=== PATIENT | female | born 1970 | race Caucasian/White ===

== ENCOUNTER 2018-08-19 21:31 | Inpatient (IN) ==
[2018-08-19] MEDS ORDERED: KETAMINE 100 MG/ML (5ML VIAL) ONE (21:35)
[2018-08-19] MEDS ORDERED: Adacel (T-DAP) 0.5 ML SYRINGE ONE (21:37)
[2018-08-19] MEDS ORDERED: CEFAZOLIN 2 GM/50 ML BAG ONE ×3 (21:37→21:39)
[2018-08-19 21:50] LABS: #Basophils 0.1 thou/uL (0.0-0.2); #Lymphocytes 1.4 thou/uL (1.20-3.40); #Monocytes 0.5 thou/uL (0.11-0.59); #Neutrophils 3.6 thou/uL (1.40-6.50); %Eosinophils 0.6 % (0.0-10.0); %Lymphocytes 24.4 % (21.0-51.0); %Neutrophils 64.9 % (42.0-75.0); Hemoglobin 11.8 g/dL (12.0-16.0); Mean Corpuscular HGB CONC 33.6 g/dL (32.0-36.0); Mean Corpuscular Volume 92.4 fL (78.0-98.0); Mean Platelet Volume 7.4 fL (7.4-10.4); Platelet Count 287 thou/uL (130-400); RBC Distribution Width 12.2 % (11.5-14.5); Red Blood Cell (RBC) Count 3.79 mill/uL (4.20-5.40); White Blood Cell (WBC) Count 5.6 thou/uL (4.8-10.8)
[2018-08-19 22:03] LABS: ALT (SGPT) 10 U/L (8-55); AST (SGOT) 13 U/L (5-34); Albumin 3.7 g/dL (3.5-5.0); Alkaline Phosphatase 49 U/L (40-150); Anion Gap 18 mmol/L (10-20); BUN (Urea Nitrogen) 29 mg/dL (7.0-18.7); Bilirubin, Total 0.3 mg/dL (0.2-1.2); Calc. Creatinine Clearance 0 mL/min (70-130); Calcium 8.7 mg/dL (7.8-10.44); Carbon Dioxide 18 mmol/L (22-29); Chloride 107 mmol/L (98-107); Estimated GFR-MDRD 66; Globulin 2.3 g/dL (2.4-3.5); Glucose 158 mg/dL (70-105); Potassium 3.8 mmol/L (3.5-5.1); Sodium 139 mmol/L (136-145)
[2018-08-19] MEDS ORDERED: Lidocaine 1% w/Epinephrine 1:100K 20 ML VIAL ONE (22:03)
[2018-08-19 22:07] LABS: Clarity CLOUDY (Clear); Specific Gravity, Urine 1.022 (1.002-1.036); pH, Urine 6.5 (5.0-9.0)
[2018-08-19 22:08] LABS: Bilirubin Negative (Negative); Blood, Urine Small (Negative); Glucose, Urine (Dipstick) Negative (Negative); Leukocyte Small (Negative); Nitrite Negative (Negative); Protein, Urine (Dipstick) Trace mg/dL (Neg-Trace)
[2018-08-19 22:09] LABS: Actual Bicarbonate (HCO3a) 22.8 mEq/L (22-28); Analyzer IN Cardio ER; Base Excess (BEa) -4.5 mEq/L (-2.0 to +3.0); Calcium, Ionized 1.13 mmol/L (1.12-1.30); Carboxyhemoglobin (COHb) 1.5 gm% (0.0-3.0); Hemoglobin (Hb) 12.8 g/dL (12.0-16.0); Potassium - ABG Lab 3.87 mmol/L (3.70-5.30); pH, Arterial 7.27 (7.35-7.45)
[2018-08-19 22:09] LABS: Bacteria/HPF 1+ HPF (None Seen); RBC/HPF 0-3 HPF (0-3); Squamous Epithelial 21-50 HPF (0-3)
[2018-08-19 22:10] LABS: Pathc Cast-AUWi Flag 3.77 (0-2.49)
[2018-08-19 22:15] LABS: Hyaline Casts/LPF 0-3 HYALINE CAST LPF (0-3 Hyaline)
[2018-08-19 22:15] LABS: Puncture Site RBA
[2018-08-19 22:16] LABS: Amphetamine Detected (NotDetected); Barbiturates Screen Not Detected (NotDetected); Benzodiazepine Screen Not Detected (NotDetected); Cocaine Metabolite Screen Detected (NotDetected); Medtox Control Line Valid? VALID (VALID); Medtox Reader # READER 4; Methadone Not Detected (NotDetected); Methamphetamine Not Detected (NotDetected); Opiate Screen Not Detected (NotDetected); Oxycodone Screen Not Detected (NotDetected); Phencyclidine (PCP) Not Detected (NotDetected); THC/Cannabinoid Screen Detected (NotDetected); Tricyclic Screen Not Detected (NotDetected)
[2018-08-19] MEDS ORDERED: Bacitracin Zinc 1 Packet ONE ×2 (22:22→22:43)
[2018-08-19 22:23] LABS: Prothrombin Time 13.5 SEC (12.0-14.7)
[2018-08-19] MEDS ORDERED: Lorazepam 2 MG/ML VIAL ONE (22:23)
[2018-08-19 22:43] LABS: BHCG - Serum Negative (NEGATIVE); Pregs Control Background? CLEAR/WHITE (CLR/WHITE); Pregs Control Bar Appear? YES (CONTROL BAR)
[2018-08-19 22:47] LABS: Acetaminophen Less than 6.0 mcg/mL (10.0-30.0); Alcohol Less than 10 mg/dL (Less than 10); Salicylate Less than 8.0 mg/dL (15.0-30.0)
[2018-08-19 22:49] LABS: PTT 24.3 SEC (22.9-36.1)
--- NOTE | 2018-08-19 22:49 | RAD ---
CHEST ONE VIEW 08/19/18 HISTORY: Altered mental status. COMPARISON: None. FINDINGS: Lungs are clear. No pneumothorax or effusion. Cardiac silhouette and mediastinal contours are within normal limits. IMPRESSION: No acute intrathoracic abnormality. POS: HOME
[2018-08-19] MEDS ORDERED: HyperTET 250 UNITS/ML 1 ML SYRINGE IM ONE (23:00)
[2018-08-20 02:16] LABS: Lactic Acid 0.6 mmol/L (0.5-2.2)
[2018-08-20 03:09] VITALS: BMI 22.4
[2018-08-20] MEDS ORDERED: Ondansetron PF 4 MG/2 ML Vial IVP PRN (03:12)
[2018-08-20] MEDS ORDERED: Ondansetron ODT 4 MG TAB SL PRN (03:12)
[2018-08-20] MEDS ORDERED: Lorazepam 2 MG/ML VIAL SLOW IVP PRN (03:12)
[2018-08-20] MEDS ORDERED: D5 1/2 NS w/20 mEq KCL 1,000 ML IV SCH (03:15)
--- NOTE | 2018-08-20 03:41 | CON ---
DATE OF CONSULTATION: 08/20/2018 REQUESTING CONSULT: ER and hospitalist. HISTORY OF PRESENT ILLNESS: 47-year-old female, presented to the emergency room via helicopter for multiple self-inflicted lacerations. The patient also with methamphetamine overdose. The patient was normotensive and tachycardic initially. The patient was combative on scene. The patient improved with Ativan IV en route to the ER. The patient's vital signs improved. The patient did receive 1 unit of blood as it was estimated approximately 1 L blood loss on scene. The patient was also given Ancef IV in the emergency room. Reported left arm 13 maggie and right arm closure with 17 maggie and 4 interrupted sutures. On exam, patient is sedated as she has been combative. The patient was given ketamine. The patient with normal respirations and nasal trumpet in place. The patient waiting on ICU bed at this time. Trauma Services was consulted to follow patient upon discharge to remove her maggie and sutures. It is also reported that the patient had a similar suicide attempt approximately 6 months ago. REVIEW OF SYSTEMS: Unable to get a review of systems due to patient being severely sedated. Per ER, the patient with unknown medical history, unknown allergies, unknown medications. PHYSICAL EXAMINATION: VITAL SIGNS: Blood pressure 130/79, respirations 14, temperature 97.9, SpO2 of 100% on 2 L nasal cannula, pulse 70. GENERAL: The patient lying in the ER bed. Moves all extremities with exam. The patient is sedated. At this time, does not open eyes or follow commands. HEENT: Head is atraumatic and normocephalic. Nystagmus present. Pupils equal, round at 5 mm and sluggish. NECK: The patient with trachea midline, superficial laceration to the right side of neck. RESPIRATORY: Bilateral breath sounds clear. Respirations even nonlabored and symmetrical. CARDIOVASCULAR: Regular rate and rhythm. Heart sounds are normal. No murmurs. ABDOMEN: Soft, nontender. EXTREMITIES: The patient with bandage to left arm with Clint wrap. Reported 13 maggie to the left arm for closure. Right arm with deeper lacerations with 17 maggie and 4 interrupted sutures. Right arm also bandaged with Clint wrap and unable to examine at this time. Lower extremities, superficial scratches to both inner thighs. NEUROLOGIC: The patient moves all extremities with exam, sedated at this time. PSYCHIATRIC: Suicidal ideation present as the patient has 7 to 8 lacerations to bilateral arms. LABORATORY DATA: WBC 5.6, RBC 3.79, hemoglobin 11.8, hematocrit 35.0. PT 13.5, INR 1.0, APTT 24.3. ABGs, pH 7.27, bicarb 22.8, pCO2 of 51. Sodium 139, potassium 3.8, chloride 107, CO2 of 18, anion gap 18, BUN 29, creatinine 0.91, estimated GFR 66, glucose 158, lactate 3.0, calcium 8.7, AST 13, ALT 10, alkaline phos 49, ammonia 39. CK 170. Urine, positive ketones, small amount of blood, positive wbc's and squamous cells. Toxicology, positive for amphetamines, positive for cocaine and positive for cannabinoids. Alcohol less than 10. DIAGNOSTICS: Chest x-ray, no acute intrathoracic abnormality. IMPRESSION: 1. Suicidal ideation. 2. Multidrug overdose with suicide attempt. 3. Bilateral multiple arm lacerations. PLAN: Trauma Services will follow up with patient in the clinic in 10 days to have her sutures and maggie removed. The patient was examined with Dr. Barrett. Job ID: [id number]
--- NOTE | 2018-08-20 09:35 | CON ---
DATE OF CONSULTATION: 08/20/2018 CONSULTING PHYSICIAN: Annabelle. REASON FOR CONSULTATION: Overdose. HISTORY OF PRESENT ILLNESS: The patient is a 47-year-old female, who apparently presented profoundly agitated last night after using, which she says is crack cocaine. There is a mention in the history and physical that she use methamphetamines too, but she denies use of this. She apparently had self-mutilated and required sutures in the left arm and right arm. PAST MEDICAL HISTORY: Remarkable for psychiatric issues. She has no known medical problems. SOCIAL HISTORY: Smokes. Consumes alcohol. Uses illicit drugs. ALLERGIES: NONE. MEDICATIONS: Prior to admission says she was using; 1. Trazodone. 2. Neurontin. 3. Seroquel. REVIEW OF SYSTEMS: Otherwise, negative. PHYSICAL EXAMINATION: VITAL SIGNS: Temperature 98.4, pulse 73, blood pressure 120/78, and O2 sat 99%. GENERAL: She is awake, alert, conversant. HEENT: Unremarkable. NECK: No JVD. CHEST: Clear. CARDIAC: S1 and S2, regular. ABDOMEN: Soft and nontender. EXTREMITIES: No edema. She has various cuts bilaterally. She has a right groin central line. IMAGING DATA: A chest x-ray showed no abnormalities. LABORATORY DATA: Drug screen positive for amphetamines, cocaine, and marijuana. White blood cell count 5.6, hematocrit 35, and platelet count 287. Sodium 139, potassium 3.8, chloride 107, CO2 of 18, BUN 29, creatinine 0.9, and glucose 158. ASSESSMENT: 1. Substance overdose. 2. Iqra, which has resolved. 3. Multiple lacerations. PLAN: The patient needs to be cleared from a psychiatric standpoint, but is otherwise medically stable for transfer to psychiatric facility. There are no acute pulmonary/critical care needs identified. Job ID: [id number]
--- NOTE | 2018-08-20 09:54 | HP ---
CHIEF COMPLAINT: Multiple drug overdose and suicidal attempt. HISTORY OF PRESENT ILLNESS: The patient is a 47-year-old female, who was brought to the emergency room by helicopter for multiple self-inflicted lacerations. She was found to overdose on methamphetamines, cannabinoids, and cocaine. She received IV Ativan in the ER. En route to the ER, she received 1 unit of blood as estimated blood loss on scene was approximately 1 L. She was also given Ancef IV in the emergency room. She had multiple maggie placed on the right and left forearms and several interrupted sutures according to the documentation from the emergency room. She was very combative. She received ketamine and she got admitted to intensive care unit. She was seen by Trauma Services. Apparently, she tried to commit suicide 6 months ago in a similar fashion. Information we have is still very limited, since she was very combative. She was not very cooperative and now, she is very sedated, not able to answer my questions. ALLERGIES: NOT KNOWN. CURRENT MEDICATION: Unknown. PAST MEDICAL HISTORY: Unknown. PAST SURGICAL HISTORY: Unknown. SOCIAL HISTORY: Unknown. REVIEW OF SYSTEMS: Postponed since the patient is very sedated at this point that she is not able to answer my questions properly. PHYSICAL EXAMINATION: VITAL SIGNS: Current vitals taken as we speak. GENERAL: She is very sedated. She is arousable, but her speech is very incoherent and she mumbles. HEENT: Her pupils dilated approximately 4 mm on both sides, responding to light. Sclerae are nonicteric. Conjunctivae pinkish. Oral mucosa is moist. She tries to follow my commands. NECK: She has a superficial laceration on the right neck. LUNGS: Clear. HEART: S1 and S2 normal. No S3. No S4. ABDOMEN: Soft and nondistended. Bowel sounds are present. No organomegaly. EXTREMITIES: No clubbing, cyanosis, or edema. She has both forearms wrapped with Kerlix. NEUROLOGIC: Postponed since she is heavily sedated at the time of my visit. LABORATORY DATA: Labs showed white count of 5.6, hemoglobin 11.8, hematocrit 35.0, and platelet count 287,000. INR 1.0, PT 13.5, and PTT 24.3. ABGs showed pH of 7.27, pCO2 of 51, pO2 of 99.3, and bicarb 22.8. Sodium of 139, potassium 3.8, chloride 107, CO2 of 18, BUN 29, and creatinine 0.91. Lactic acid 3.0 from yesterday, this morning lactic acid is 0.6. Creatine kinase 170, globulin 2.3, and the rest of chemistry within normal limits. Urinalysis showed 15 of ketones, small amount of blood, small amount of leukocyte esterase, 7 to 10 wbc's, 21 to 50 squamous epithelial cells, and 1+ urine bacteria. Toxicology showed less than 8.0 salicylates. UDS positive for amphetamines, cocaine, and cannabinoids. Plasma alcohol less than 10. Electrocardiogram showed normal sinus rhythm, normal axis, prolonged QT at 484. Radiologic chest x-ray, no acute changes. IMPRESSION: 1. Multidrug overdose with suicide attempt. 2. Multiple bilateral arm laceration. 3. Normocytic anemia status post transfusion of 1 packed red blood cell unit. 4. Questionable urinary tract infection. 5. Lack of information about the patient at this point. PLAN: Admission to critical care unit, n.p.o., IV normal saline at 150 mL/h, p.r.n. Ativan for agitation, p.r.n. Zofran for nausea with close monitoring of her heart condition since a QT interval was prolonged on the electrocardiogram. Pulmonary/Critical Care consultation with Dr. Altman. The patient was seen by Trauma and Dr. Barrett team and she is cleared. Urine culture was done. We will obtain [facility] consultation after she is back to her baseline mentally and physically. I am not going to use any chemical deep venous thrombosis prophylaxis since she is low risk for deep venous thrombosis. She basically needs medications with sedative effect to counteract the effect of amphetamine, cocaine, and cannabinoids. Job ID: [id number]
[2018-08-20 12:17] VITALS: TEMP 98.5
--- NOTE | 2018-08-21 07:02 | DIS ---
DATE OF ADMISSION: 08/20/2018 DATE OF DISCHARGE: 08/20/2018 FINAL DIAGNOSES: 1. Multi-drug overdose. 2. Suicidal attempt. 3. Multiple bilateral arm lacerations. 4. Normocytic anemia, status post transfusion of one packed red blood cell unit. HOSPITAL COURSE: The patient is a 47-year-old female, who was brought to the emergency room by helicopter for multiple self-inflicted lacerations. She was found to overdose on methamphetamines, cannabinoids, and cocaine. She was transfused with 1 unit of packed red blood cells for her blood loss. She received multiple maggie on the right and left forearms, and several interrupted sutures according to the documentation from the emergency room. She was very combative. She received ketamine, which sedated her. Then, she got admitted to intensive care unit. She was observed and monitored closely. Apparently, she did similar suicidal attempt approximately 6 months ago. She has been seen by [facility] [place]. She was discharged to this facility and the case was discussed with . TIME SPENT: Discharge time spent is less than 30 minutes. Job ID: [id number]
== END 2018-08-20 18:50 | disposition short-term general hospital (02) | DRG 918 ==
LOC: ERS 21:31 → CCU 08-20 02:50
PROVIDERS: ADMIT Internal Medicine; ATTEND Internal Medicine
PROC: 30233N1 Transfusion of Nonautologous Red Blood Cells into Peripheral Vein, Percutaneous Approach (ICD-10-PCS; principal; 2018-08-20)
DX: T50.902A Poisoning by unspecified drugs, medicaments and biological substances, intentional self-harm, initial encounter (principal); F30.9 Manic episode, unspecified; S41.112A Laceration without foreign body of left upper arm, initial encounter; S41.111A Laceration without foreign body of right upper arm, initial encounter; Y28.9XXA Contact with unspecified sharp object, undetermined intent, initial encounter; D64.9 Anemia, unspecified
CPT/HCPCS: 36430; 71045; 80053; 80306; 80307; 81003; 81015; 82140; 82550; 82805; 83605; 84703; 85025; 85610; 85730; 86850; 86900; 86901; 87086; 90715; 93005; 94760; J1670; J2001; J2060; P9016

== ENCOUNTER 2018-12-31 21:08 | Emergency (ER) | payer MEDICARE, MEDICAID ==
[~2018-12-31 21:08] MED LIST: ISOVUE-370 76%-LOCM 1 ML ONE
[2018-12-31] MEDS ORDERED: Fentanyl 100 MCG/2 ML VIAL ONE (21:28)
[2018-12-31] MEDS ORDERED: Ondansetron PF 4 MG/2 ML Vial ONE (21:28)
[2018-12-31 21:44] LABS: #Basophils 0.1 thou/uL (0.0-0.2); #Eosinphils 0.1 thou/uL (0.0-0.7); #Lymphocytes 1.3 thou/uL (1.20-3.40); #Monocytes 0.5 thou/uL (0.11-0.59); #Neutrophils 7.4 thou/uL (1.40-6.50); %Basophils 0.6 % (0.0-1.0); %Eosinophils 0.6 % (0.0-10.0); %Lymphocytes 13.9 % (21.0-51.0); Hemoglobin 12.8 g/dL (12.0-16.0); Mean Corpuscular HGB CONC 32.2 g/dL (32.0-36.0); Mean Corpuscular Hemoglobin 30.3 pg (27.0-31.0); Mean Corpuscular Volume 94.2 fL (78.0-98.0); Mean Platelet Volume 8.6 fL (7.4-10.4); Platelet Count 279 thou/uL (130-400); RBC Distribution Width 12.8 % (11.5-14.5); Red Blood Cell (RBC) Count 4.22 mill/uL (4.20-5.40); White Blood Cell (WBC) Count 9.3 thou/uL (4.8-10.8)
[2018-12-31 22:00] LABS: ALT (SGPT) 10 U/L (8-55); AST (SGOT) 12 U/L (5-34); Albumin 4.1 g/dL (3.5-5.0); Alcohol Less than 10 mg/dL (Less than 10); Alkaline Phosphatase 57 U/L (40-150); Anion Gap 14 mmol/L (10-20); BUN (Urea Nitrogen) 13 mg/dL (7.0-18.7); Bilirubin, Total 0.5 mg/dL (0.2-1.2); Calc. Creatinine Clearance 0 mL/min (70-130); Calcium 9.3 mg/dL (7.8-10.44); Carbon Dioxide 22 mmol/L (22-29); Chloride 109 mmol/L (98-107); Estimated GFR-MDRD 75; Globulin 2.4 g/dL (2.4-3.5); Glucose 86 mg/dL (70-105); Potassium 3.6 mmol/L (3.5-5.1); Protein, Total 6.5 g/dL (6.0-8.3); Sodium 141 mmol/L (136-145)
[2018-12-31 22:00] LABS: Acetaminophen Less than 6.0 mcg/mL (10.0-30.0); Alcohol Less than 10 mg/dL (Less than 10); CK (CPK) 126 U/L (29-168); Salicylate Less than 8.0 mg/dL (15.0-30.0)
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
[2018-12-31 23:16] LABS: Pregnancy Test - Urine (BHCG) Negative (Negative); Pregu Control Background? CLEAR/WHITE (CLR/WHITE); Pregu Control Bar Appear? YES (CONTROL BAR); Specific Gravity Greater than 1.060 (1.002-1.036)
[2018-12-31 23:24] LABS: Medtox Reader # READER 4; THC/Cannabinoid Screen Detected (NotDetected)
[2018-12-31 23:25] LABS: Amphetamine Detected (NotDetected); Benzodiazepine Screen Detected (NotDetected); Methamphetamine Detected (NotDetected); Opiate Screen Detected (NotDetected)
[2018-12-31 23:26] LABS: Barbiturates Screen Not Detected (NotDetected); Cocaine Metabolite Screen Not Detected (NotDetected); Medtox Control Line Valid? VALID (VALID); Methadone Not Detected (NotDetected); Oxycodone Screen Not Detected (NotDetected); Phencyclidine (PCP) Not Detected (NotDetected); Tricyclic Screen Not Detected (NotDetected)
== END 2019-01-01 | disposition home or self-care (01) ==
LOC: EEVIPCON 21:08 → ERS 21:08
DX: S20.221A Contusion of right back wall of thorax, initial encounter (principal); F41.9 Anxiety disorder, unspecified; F32.9 Major depressive disorder, single episode, unspecified; Z79.899 Other long term (current) drug therapy; W17.89XA Other fall from one level to another, initial encounter
CPT/HCPCS: 36415; 71260; 72125; 74177; 80053; 80306; 80307; 81025; 82550; 84484; 85025; 93005; 96361; 96374; 96375; J2405; J3010; Q9966